=== PATIENT | female | born 1980 | race Caucasian/White ===

== ENCOUNTER 2024-04-15 01:43 | Emergency (ER) | payer BC ==
[~2024-04-15] VITALS: Ht 167.6 cm; Wt 130.2 kg
[2024-04-15 03:00] VITALS: BP 155/101; TEMP 98.7
[2024-04-15] MEDS: LIDOCAINE /MPF 1% VIAL 5 ML VIAL IJ ONE (04:00)
[2024-04-15] MEDS ORDERED: ONDANSETRON 4 MG TAB.RAPDIS ONE (04:45)
[2024-04-15] MEDS ORDERED: HYDROMORPHONE 1 MG/1 ML DISP.SYRIN ONE (04:45)
[2024-04-15] MEDS: ONDANSETRON 4 MG TAB.RAPDIS PO ONE (04:48)
[2024-04-15] MEDS: HYDROMORPHONE 1 MG/1 ML DISP.SYRIN IM ONE (04:49)
[2024-04-15] MEDS ORDERED: CLINDAMYCIN HCL 150 MG CAPSULE ONE (05:37)
[2024-04-15] MEDS: CLINDAMYCIN HCL 150 MG CAPSULE PO ONE (05:43)
[2024-04-15] MEDS ORDERED: CLIN150C16 PO (05:51)
[2024-04-15 06:00] VITALS: O2SAT 99
== END 2024-04-15 06:14 | disposition home or self-care (01) ==
LOC: ER 01:43
DX: H60.01 Abscess of right external ear (principal); H66.91 Otitis media, unspecified, right ear; I10 Essential (primary) hypertension; Z88.6 Allergy status to analgesic agent
CPT/HCPCS: 69000; 99285; 96372; J1171; A6407; Q0162

== ENCOUNTER 2024-04-17 07:01 | Emergency (ER) | payer BC ==
[~2024-04-17] VITALS: Ht 167.6 cm; Wt 129.3 kg
[~2024-04-17 07:01] MED LIST: CLIN150C16 PO
[2024-04-17 08:04] VITALS: BP 165/114; TEMP 98.1
[2024-04-17 08:28] VITALS: O2SAT 99
== END 2024-04-17 08:29 | disposition home or self-care (01) ==
LOC: ER 07:03
DX: H60.10 Cellulitis of external ear, unspecified ear (principal); I10 Essential (primary) hypertension; Z88.6 Allergy status to analgesic agent